=== PATIENT | female | born 1980 | race African-American/Black ===

== ENCOUNTER 2024-12-30 20:45 | Emergency (ER) | payer OTHER ==
[2024-12-30] MEDS: Take Home: Cyclobenzaprine 10 MG Tab, 4 Tab Pack PO ONE (21:38)
[2024-12-30 22:57] VITALS: BP 213/102; PULSE 78
== END 2024-12-30 21:43 | disposition home or self-care (01) ==
LOC: VM.ED 20:45
DX: S16.1XXA Strain of muscle, fascia and tendon at neck level, initial encounter (principal); V87.7XXA Person injured in collision between other specified motor vehicles (traffic), initial encounter
CPT/HCPCS: 99283; A9270-GY